=== PATIENT | male | born 1965 | race Caucasian/White ===

== ENCOUNTER 2022-08-27 17:52 | Emergency (ER) | payer SELFPAY ==
--- NOTE | 2022-08-27 18:06 | ERPHSYRPT ---
- History of Present Illness Time Seen by Provider: 08/27/22 18:05 Source: patient Exam Limitations: no limitations Physician History: This is a morbidly obese 56-year-old white male patient who states that he has been depressed for over a year and has lost 102 pounds in over a year and does not tend to eat much. He states in the last 6 months he is lost the majority of his weight and its not necessarily intentional. He states that at times, he vomits up liquid when he drinks it. Patient states that he has been diagnosed in the past with hyperlipidemia, diabetes, gastroesophageal reflux disease, and depression. However, he has not been taking any of this medication. He has an appointment to see Dr. Milian in the latter part of the first week of September 2022. He states that his weakness is getting worse in the last week. Patient denies shortness of breath. He denies pain of any kind. He specifically denies chest pain and denies abdominal pain. He has not had any fevers or diarrhea. When asked, the patient denies being homicidal and he denies being suicidal Timing/Duration: worse, other (Chronic over several months) Severity: mild (To moderate) Associated Symptoms: nausea, vomiting, loss of appetite, weakness, No abdominal pain, No shortness of breath, No chest pain, No fever, No seizure Allergies/Adverse Reactions: No Known Drug Allergies Allergy (Verified 08/27/22 18:01) Hx Influenza Vaccination/Date Given: No Hx Pneumococcal Vaccination/Date Given: No Travel Risk - International Travel Have you traveled outside of the country in past 3 weeks: No - Coronavirus Screening Are you exhibiting any of the following symptoms?: No Close contact with a COVID-19 positive Pt in past 14-21 Days: No - Review of Systems Constitutional: Weakness Eyes: No Symptoms Ears, Nose, & Throat: No Symptoms Respiratory: No Symptoms Cardiac: No Symptoms Abdominal/Gastrointestinal: No Symptoms Genitourinary Symptoms: No Symptoms Musculoskeletal: No Symptoms Skin: No Symptoms Neurological: No Symptoms Psychological: Depression, No Suicidal Ideations, No Homicidal Ideations Endocrine: Other (Weight loss) Hematologic/Lymphatic: No Symptoms Immunological/Allergic: No Symptoms - Past Medical History Pertinent Past Medical History: Yes Cardiac History: High Cholesterol Other Medical History: swelling in legs and feet - Past Surgical History Past Surgical History: No - Social History Smoking Status: Never smoker Drug Use: none - Nursing Vital Signs Nursing Vital Signs: Initial Vital Signs Temperature 98.5 F 08/27/22 18:02 Pulse Rate 96 H 08/27/22 18:02 Respiratory Rate 19 08/27/22 18:02 Blood Pressure 146/96 08/27/22 18:02 O2 Sat by Pulse Oximetry 98 08/27/22 18:02 Pain Scale Pain Intensity 0 - Physical Exam General Appearance: no apparent distress, alert, anxiety, obese Eye Exam: PERRL/EOMI, eyes nml inspection Ears, Nose, Throat Exam: normal ENT inspection, moist mucous membranes Neck Exam: normal inspection, non-tender, supple, full range of motion Respiratory Exam: normal breath sounds, lungs clear, airway intact, No chest tenderness, No respiratory distress Cardiovascular Exam: regular rate/rhythm, normal heart sounds, normal peripheral pulses Gastrointestinal/Abdomen Exam: soft, normal bowel sounds, No tenderness Rectal Exam: not done Back Exam: normal inspection, normal range of motion, No CVA tenderness, No rena tebral tenderness Extremity Exam: normal inspection, normal range of motion, pelvis stable Neurologic Exam: alert, oriented x 3, cooperative, 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, normal mood/affect, nml cerebellar function, nml station & gait, sensation nml Skin Exam: normal color, warm, dry Lymphatic Exam: No adenopathy SpO2 Interpretation: normal O2 Delivery: Room Air - Course Nursing assessment & vital signs reviewed: Yes EKG Interpreted by Me: RATE (86), Sinus Rhythm, NORMAL AXIS, LAFB, NORMAL INTERVALS, Right Bundle Branch Block, NORMAL ST-T, Other (No acute ischemic changes on today's twelve-lead EKG) Ordered Tests: Active Orders 24 hr Category Date Time Status Black Leather Buffer STAT Care 08/27/22 18:52 Active EKG-ER Only STAT Care 08/27/22 18:52 Active IV Insertion STAT Care 08/27/22 18:52 Active CHEST 1 VIEW (PORTABLE) Stat Exams 08/27/22 20:04 Completed CBC W DIFF Stat Lab 08/27/22 18:45 Completed CMP Stat Lab 08/27/22 18:45 Completed CULTURE,URINE Stat Lab 08/27/22 21:24 Received Zapata Screen Stat Lab 08/27/22 18:45 Completed NT PRO BNPII Stat Lab 08/27/22 18:45 Completed T4 (Thyroxine) Stat Lab 08/27/22 18:45 Completed TROPONIN Q4H Lab 08/27/22 18:45 Completed TROPONIN Q4H Lab 08/27/22 23:00 Ordered TROPONIN Q4H Lab 08/28/22 03:00 Ordered TSH [TSH, 3RD Generation] Stat Lab 08/27/22 18:45 Completed UA W/RFX UR CULTURE Stat Lab 08/27/22 21:24 Completed Urine Triage Profile Stat Lab 08/27/22 21:15 Completed Medication Summary Discontinued Medications Generic Name Dose Route Start Last Admin Trade Name Freq PRN Reason Stop Dose Admin Sodium Chloride 1,000 mls @ 999 mls/hr 08/27/22 18:52 08/27/22 20:32 Sodium Chloride 0.9% 1000 Ml IV 08/27/22 19:52 Infused .Q1H1M STA Infusion Sodium Chloride Confirm 08/27/22 19:21 Sodium Chloride 0.9% 1000 Ml Administered 08/27/22 19:22 Dose 1,000 mls @ ud .ROUTE .STK-MED ONE Pantoprazole Sodium 40 mg 08/27/22 20:41 08/27/22 21:06 Pantoprazole 40 Mg Vial IV 08/27/22 20:42 40 mg STAT ONE Administration Pantoprazole Sodium Confirm 08/27/22 21:05 Pantoprazole 40 Mg Vial Administered 08/27/22 21:06 Dose 40 mg IV .STK-MED ONE Potassium Chloride 20 meq 08/27/22 20:05 08/27/22 20:11 Potassium Chloride Tab 10 Meq Tab PO 08/27/22 20:06 20 meq STAT ONE Administration Potassium Chloride Confirm 08/27/22 20:08 Potassium Chloride Tab 10 Meq Tab Administered 08/27/22 20:09 Dose 40 meq PO .STK-MED ONE Potassium Chloride Confirm 08/27/22 20:12 Potassium Chloride Tab 10 Meq Tab Administered 08/27/22 20:13 Dose 20 meq PO .STK-MED ONE Lab/Rad Data: Laboratory Result Diagrams 08/27/22 18:45 08/27/22 18:45 Laboratory Results 08/27/22 08/27/22 08/27/22 Range/Units 21:24 21:15 19:10 WBC (4.0-10.5) x10^3/uL RBC (4.1-5.6) x10^6/uL Hgb (12.5-18.0) g/dL Hct (42-50) % MCV (78-100) fL MCH (26-32) pg MCHC (32-36) g/dL RDW (11.5-14.0) % Plt Count (150-450) x10^3/uL MPV (7.5-11.0) fL Gran % (36.0-66.0) % Immature Gran % (Auto) (0.00-0.4) % Nucleat RBC Rel Count (0.00-0.1) % Eos # (Auto) (0-0.5) x10^3/uL Immature Gran # (Auto) (0.00-0.03) x10^3u/L Absolute Lymphs (auto) (1.0-4.6) x10^3/uL Absolute Monos (auto) (0.0-1.3) x10^3/uL Absolute Nucleated RBC (0.00-0.01) x10^3u/L Lymphocytes % (24.0-44.0) % Monocytes % (0.0-12.0) % Eosinophils % (0.00-5.0) % Basophils % (0.0-0.4) % Absolute Granulocytes (1.4-6.9) x10^3/uL Basophils # (0-0.4) x10^3/uL Sodium (137-145) mmol/L Potassium (3.5-5.1) mmol/L Chloride (98-107) mmol/L Carbon Dioxide (22-30) mmol/L Anion Gap (5-15) MEQ/L BUN (9-20) mg/dL Creatinine (0.66-1.25) mg/dL Estimated GFR ML/MIN Glucose (74-106) mg/dL Calcium (8.4-10.2) mg/dL Total Bilirubin (0.2-1.3) mg/dL AST (17-59) U/L ALT (0-50) U/L Alkaline Phosphatase (38-126) U/L Troponin I (0.000-0.034) ng/mL NT-Pro-B Natriuret Pep (<300) pg/mL Serum Total Protein (6.3-8.2) g/dL Albumin (3.5-5.0) g/dL Thyroxine (T4) (5.53-10.96) ug/dL TSH 3rd Generation (0.47-4.68) mIU/L Urine Color Dark Yellow (Yellow) Urine Appearance Cloudy A (Clear) Urine pH 5.5 (4.6-8.0) Ur Specific [place] 1.020 (1.005-1.030) Urine Protein 30 (Negative) Urine Glucose (UA) Negative (Negative) mg/dL Urine Ketones Trace A (Negative) Urine Blood Negative (Negative) Urine Nitrite Positive A (Negative) Urine Bilirubin Moderate A (Negative) Urine Urobilinogen 2.0 A (0.2) mg/dL Ur Leukocyte Esterase Trace A (Negative) U Hyaline Cast (Auto) 6-10 A (0-2) /LPF Urine Microscopic RBC 0-2 (0-5) /HPF Urine Microscopic WBC 3-5 (0-5) /HPF Ur Epithelial Cells Few (None Seen) /HPF Urine Bacteria None Seen (None Seen) /HPF Urine Culture Reflexed YES (NO) Urine Opiates Level NEGATIVE (NEGATIVE) Ur Methadone NEGATIVE (NEGATIVE) Urine Barbiturates NEGATIVE (NEGATIVE) Ur Phencyclidine (PCP) NEGATIVE (NEGATIVE) Urine Amphetamine NEGATIVE (NEGATIVE) U Benzodiazepine Level NEGATIVE (NEGATIVE) Urine Cocaine NEGATIVE (NEGATIVE) Urine Marijuana (THC) NEGATIVE (NEGATIVE) Monoscreen (Negative) Influenza Type A Ag NEGATIVE (NEGATIVE) Influenza Type B Ag NEGATIVE (NEGATIVE) RSV (PCR) NEGATIVE (NEGATIVE) SARS-CoV-2 (PCR) NEGATIVE (NEGATIVE) 08/27/22 08/27/22 08/27/22 Range/Units 18:45 18:45 18:45 WBC (4.0-10.5) x10^3/uL RBC (4.1-5.6) x10^6/uL Hgb (12.5-18.0) g/dL Hct (42-50) % MCV (78-100) fL MCH (26-32) pg MCHC (32-36) g/dL RDW (11.5-14.0) % Plt Count (150-450) x10^3/uL MPV (7.5-11.0) fL Gran % (36.0-66.0) % Immature Gran % (Auto) (0.00-0.4) % Nucleat RBC Rel Count (0.00-0.1) % Eos # (Auto) (0-0.5) x10^3/uL Immature Gran # (Auto) (0.00-0.03) x10^3u/L Absolute Lymphs (auto) (1.0-4.6) x10^3/uL Absolute Monos (auto) (0.0-1.3) x10^3/uL Absolute Nucleated RBC (0.00-0.01) x10^3u/L Lymphocytes % (24.0-44.0) % Monocytes % (0.0-12.0) % Eosinophils % (0.00-5.0) % Basophils % (0.0-0.4) % Absolute Granulocytes (1.4-6.9) x10^3/uL Basophils # (0-0.4) x10^3/uL Sodium (137-145) mmol/L Potassium (3.5-5.1) mmol/L Chloride (98-107) mmol/L Carbon Dioxide (22-30) mmol/L Anion Gap (5-15) MEQ/L BUN (9-20) mg/dL Creatinine (0.66-1.25) mg/dL Estimated GFR ML/MIN Glucose (74-106) mg/dL Calcium (8.4-10.2) mg/dL Total Bilirubin (0.2-1.3) mg/dL AST (17-59) U/L ALT (0-50) U/L Alkaline Phosphatase (38-126) U/L Troponin I (0.000-0.034) ng/mL NT-Pro-B Natriuret Pep 461 (<300) pg/mL Serum Total Protein (6.3-8.2) g/dL Albumin (3.5-5.0) g/dL Thyroxine (T4) 11.1 H (5.53-10.96) ug/dL TSH 3rd Generation 1.490 (0.47-4.68) mIU/L Urine Color (Yellow) Urine Appearance (Clear) Urine pH (4.6-8.0) Ur Specific [place] (1.005-1.030) Urine Protein (Negative) Urine Glucose (UA) (Negative) mg/dL Urine Ketones (Negative) Urine Blood (Negative) Urine Nitrite (Negative) Urine Bilirubin (Negative) Urine Urobilinogen (0.2) mg/dL Ur Leukocyte Esterase (Negative) U Hyaline Cast (Auto) (0-2) /LPF Urine Microscopic RBC (0-5) /HPF Urine Microscopic WBC (0-5) /HPF Ur Epithelial Cells (None Seen) /HPF Urine Bacteria (None Seen) /HPF Urine Culture Reflexed (NO) Urine Opiates Level (NEGATIVE) Ur Methadone (NEGATIVE) Urine Barbiturates (NEGATIVE) Ur Phencyclidine (PCP) (NEGATIVE) Urine Amphetamine (NEGATIVE) U Benzodiazepine Level (NEGATIVE) Urine Cocaine (NEGATIVE) Urine Marijuana (THC) (NEGATIVE) Monoscreen (Negative) Influenza Type A Ag (NEGATIVE) Influenza Type B Ag (NEGATIVE) RSV (PCR) (NEGATIVE) SARS-CoV-2 (PCR) (NEGATIVE) 08/27/22 08/27/22 08/27/22 Range/Units 18:45 18:45 18:45 WBC (4.0-10.5) x10^3/uL RBC (4.1-5.6) x10^6/uL Hgb (12.5-18.0) g/dL Hct (42-50) % MCV (78-100) fL MCH (26-32) pg MCHC (32-36) g/dL RDW (11.5-14.0) % Plt Count (150-450) x10^3/uL MPV (7.5-11.0) fL Gran % (36.0-66.0) % Immature Gran % (Auto) (0.00-0.4) % Nucleat RBC Rel Count (0.00-0.1) % Eos # (Auto) (0-0.5) x10^3/uL Immature Gran # (Auto) (0.00-0.03) x10^3u/L Absolute Lymphs (auto) (1.0-4.6) x10^3/uL Absolute Monos (auto) (0.0-1.3) x10^3/uL Absolute Nucleated RBC (0.00-0.01) x10^3u/L Lymphocytes % (24.0-44.0) % Monocytes % (0.0-12.0) % Eosinophils % (0.00-5.0) % Basophils % (0.0-0.4) % Absolute Granulocytes (1.4-6.9) x10^3/uL Basophils # (0-0.4) x10^3/uL Sodium 140 (137-145) mmol/L Potassium 3.2 L (3.5-5.1) mmol/L Chloride 101 (98-107) mmol/L Carbon Dioxide 27 (22-30) mmol/L Anion Gap 15.0 (5-15) MEQ/L BUN 10 (9-20) mg/dL Creatinine 0.67 (0.66-1.25) mg/dL Estimated GFR > 60.0 ML/MIN Glucose 106 (74-106) mg/dL Calcium 9.3 (8.4-10.2) mg/dL Total Bilirubin 0.90 (0.2-1.3) mg/dL AST 44 (17-59) U/L ALT 29 (0-50) U/L Alkaline Phosphatase 92 (38-126) U/L Troponin I 0.022 (0.000-0.034) ng/mL NT-Pro-B Natriuret Pep (<300) pg/mL Serum Total Protein 7.3 (6.3-8.2) g/dL Albumin 3.5 (3.5-5.0) g/dL Thyroxine (T4) (5.53-10.96) ug/dL TSH 3rd Generation (0.47-4.68) mIU/L Urine Color (Yellow) Urine Appearance (Clear) Urine pH (4.6-8.0) Ur Specific [place] (1.005-1.030) Urine Protein (Negative) Urine Glucose (UA) (Negative) mg/dL Urine Ketones (Negative) Urine Blood (Negative) Urine Nitrite (Negative) Urine Bilirubin (Negative) Urine Urobilinogen (0.2) mg/dL Ur Leukocyte Esterase (Negative) U Hyaline Cast (Auto) (0-2) /LPF Urine Microscopic RBC (0-5) /HPF Urine Microscopic WBC (0-5) /HPF Ur Epithelial Cells (None Seen) /HPF Urine Bacteria (None Seen) /HPF Urine Culture Reflexed (NO) Urine Opiates Level (NEGATIVE) Ur Methadone (NEGATIVE) Urine Barbiturates (NEGATIVE) Ur Phencyclidine (PCP) (NEGATIVE) Urine Amphetamine (NEGATIVE) U Benzodiazepine Level (NEGATIVE) Urine Cocaine (NEGATIVE) Urine Marijuana (THC) (NEGATIVE) Monoscreen NEGATIVE (Negative) Influenza Type A Ag (NEGATIVE) Influenza Type B Ag (NEGATIVE) RSV (PCR) (NEGATIVE) SARS-CoV-2 (PCR) (NEGATIVE) 08/27/22 Range/Units 18:45 WBC 17.4 H (4.0-10.5) x10^3/uL RBC 4.80 (4.1-5.6) x10^6/uL Hgb 14.4 (12.5-18.0) g/dL Hct 44.4 (42-50) % MCV 92.5 (78-100) fL MCH 30.0 (26-32) pg MCHC 32.4 (32-36) g/dL RDW 13.4 (11.5-14.0) % Plt Count 270 (150-450) x10^3/uL MPV 10.3 (7.5-11.0) fL Gran % 85.6 H (36.0-66.0) % Immature Gran % (Auto) 0.5 H (0.00-0.4) % Nucleat RBC Rel Count 0.0 (0.00-0.1) % Eos # (Auto) 0.22 (0-0.5) x10^3/uL Immature Gran # (Auto) 0.09 H (0.00-0.03) x10^3u/L Absolute Lymphs (auto) 1.17 (1.0-4.6) x10^3/uL Absolute Monos (auto) 0.98 (0.0-1.3) x10^3/uL Absolute Nucleated RBC 0.00 (0.00-0.01) x10^3u/L Lymphocytes % 6.7 L (24.0-44.0) % Monocytes % 5.6 (0.0-12.0) % Eosinophils % 1.3 (0.00-5.0) % Basophils % 0.3 (0.0-0.4) % Absolute Granulocytes 14.89 H (1.4-6.9) x10^3/uL Basophils # 0.06 (0-0.4) x10^3/uL Sodium (137-145) mmol/L Potassium (3.5-5.1) mmol/L Chloride (98-107) mmol/L Carbon Dioxide (22-30) mmol/L Anion Gap (5-15) MEQ/L BUN (9-20) mg/dL Creatinine (0.66-1.25) mg/dL Estimated GFR ML/MIN Glucose (74-106) mg/dL Calcium (8.4-10.2) mg/dL Total Bilirubin (0.2-1.3) mg/dL AST (17-59) U/L ALT (0-50) U/L Alkaline Phosphatase (38-126) U/L Troponin I (0.000-0.034) ng/mL NT-Pro-B Natriuret Pep (<300) pg/mL Serum Total Protein (6.3-8.2) g/dL Albumin (3.5-5.0) g/dL Thyroxine (T4) (5.53-10.96) ug/dL TSH 3rd Generation (0.47-4.68) mIU/L Urine Color (Yellow) Urine Appearance (Clear) Urine pH (4.6-8.0) Ur Specific [place] (1.005-1.030) Urine Protein (Negative) Urine Glucose (UA) (Negative) mg/dL Urine Ketones (Negative) Urine Blood (Negative) Urine Nitrite (Negative) Urine Bilirubin (Negative) Urine Urobilinogen (0.2) mg/dL Ur Leukocyte Esterase (Negative) U Hyaline Cast (Auto) (0-2) /LPF Urine Microscopic RBC (0-5) /HPF Urine Microscopic WBC (0-5) /HPF Ur Epithelial Cells (None Seen) /HPF Urine Bacteria (None Seen) /HPF Urine Culture Reflexed (NO) Urine Opiates Level (NEGATIVE) Ur Methadone (NEGATIVE) Urine Barbiturates (NEGATIVE) Ur Phencyclidine (PCP) (NEGATIVE) Urine Amphetamine (NEGATIVE) U Benzodiazepine Level (NEGATIVE) Urine Cocaine (NEGATIVE) Urine Marijuana (THC) (NEGATIVE) Monoscreen (Negative) Influenza Type A Ag (NEGATIVE) Influenza Type B Ag (NEGATIVE) RSV (PCR) (NEGATIVE) SARS-CoV-2 (PCR) (NEGATIVE) - Progress Progress: improved Progress Note: 08/27/22 21:53 This patient's medical issue is of moderate complexity. The level of complexity in the work-up performed was determined by reviewing the patient's past medical history, medication list, drug allergy list, history of present illness and findings on physical examination. The work-up includes a chest x-ray, twelve- lead EKG, troponin level, CBC, CMP, BNP, urinalysis, urine triage, thyroid function test. The chest x-ray was evaluated and interpreted by me. There is no evidence of any acute cardiopulmonary processes. Patient does have a leukocytosis of unknown origin. We provided him with intravenous fluids, intravenous Protonix. Patient again states he has no chest pain. He has no shortness of breath. He has no abdominal pain. We also performed COVID-19 test, mononucleosis test, influenza A and influenza B test and tested for RSV. These results were negative. We will provide the patient with intravenous antibiotics because he does have a leukocytosis of significance with a left shift. Patient has appointment to see his new primary care physician in [facility] 2 weeks time. We will have him drink plenty of fluids and prescribe him Protonix. 08/27/22 22:04 Patient has a urinary tract infection. We will provide him with a dose of Rocephin intravenously tonight and send a prescription for Levaquin to his pharmacy. Counseled pt/family regarding: lab results, diagnosis, need for follow-up Medical Desision Making - Independent Historian Additional History obtained from: Spouse, Child - Discussion of managment Reviewed:: Test results, Need for additional workup Agreed on:: Treatment plan, need for follow-up - Diagnostic Testing Diagnostic test were ordered, analyzed, and reviewed by me: Yes Radiological Interpretation: Interpreted by me - Risk of complications The pt has a mod risk of morbidity or mortality based on: Need for prescription drug management - Departure Departure Disposition: Home Clinical Impression: UTI (urinary tract infection) Condition: Stable Critical Care Time: No Referrals: NICHOLAS LEIVA [Primary Care Provider] - Follow up/PCP as directed Additional Instructions: Drink plenty of clear liquids. Advance your diet as tolerated. Avoid fatty greasy spicy foods. Take your antibiotics and Protonix as prescribed. Keep your appointment with Dr. Milian. Prescriptions: Levofloxacin [Levaquin 500 MG Tablet] 500 mg PO DAILY #7 tablet Pantoprazole 20 mg [Protonix 20MG Tablet] 20 mg PO DAILY #21 tab
[2022-08-27] MEDS ORDERED: Sodium Chloride 0.9% 1000 ML 1,000 ML IV STA (18:52)
[2022-08-27 19:05] LABS: Absolute Neutrophil Ct (ANC) 14.89 x10^3/uL (1.4-6.9); BASOPHIL % 0.3 % (0.0-0.4); Basophil (Absolute #) 0.06 x10^3/uL (0-0.4); Eosinophil % 1.3 % (0.00-5.0); Eosinophil (Absolute #) 0.22 x10^3/uL (0-0.5); Hematocrit 44.4 % (42-50); Hemoglobin 14.4 g/dL (12.5-18.0); IMMATURE GRAN # 0.09 x10^3u/L (0.00-0.03); IMMATURE GRAN % 0.5 % (0.00-0.4); Lymphocyte (Absolute #) 1.17 x10^3/uL (1.0-4.6); Lymphocytes % 6.7 % (24.0-44.0); Mean Cell Volume 92.5 fL (78-100); Mean Corpuscular Hgb Concent. 32.4 g/dL (32-36); Mean Platelet Volume 10.3 fL (7.5-11.0); Monocyte (Absolute #) 0.98 x10^3/uL (0.0-1.3); Monocytes % 5.6 % (0.0-12.0); Neutrophil % 85.6 % (36.0-66.0); Platelet Count 270 x10^3/uL (150-450); Red Cell Distribution Width 13.4 % (11.5-14.0); White Blood Count 17.4 x10^3/uL (4.0-10.5)
[2022-08-27 19:06] LABS: ALBUMIN 3.5 g/dL (3.5-5.0); ALKALINE PHOSPHATASE 92 U/L (38-126); BLOOD UREA NITROGEN 10 mg/dL (9-20); CHLORIDE 101 mmol/L (98-107); Calcium 9.3 mg/dL (8.4-10.2); Carbon Dioxide 27 mmol/L (22-30); Creatinine 1 0.67 mg/dL (0.66-1.25); EST GLOMERULAR FILTRATION RATE > 60.0 ML/MIN; Glucose 106 mg/dL (74-106); Potassium 3.2 mmol/L (3.5-5.1); SGOT/AST 44 U/L (17-59); SGPT/ALT 29 U/L (0-50); SODIUM 140 mmol/L (137-145); Total Protein 7.3 g/dL (6.3-8.2)
[2022-08-27] MEDS ORDERED: Sodium Chloride 0.9% 1000 ML 1,000 ML ONE (19:21)
[2022-08-27 19:52] LABS: INFLUENZA A NEGATIVE (NEGATIVE); INFLUENZA B NEGATIVE (NEGATIVE); RESPIRATORY SYNCTIAL VIRUS NEGATIVE (NEGATIVE); SARS-CoV-2 Xpert Express NEGATIVE (NEGATIVE)
[2022-08-27] MEDS ORDERED: Klor Con PO ONE ×3 (20:05→20:12)
[2022-08-27] MEDS ORDERED: PROTONIX 40 MG IV IV ONE ×2 (20:41→21:05)
--- NOTE | 2022-08-27 21:07 | XRAY ---
Indication: Weakness. Leukocytosis. Comparison: None Portable chest demonstrates normal heart and lungs. Bony thorax intact with mild degenerative changes.
[2022-08-27 21:36] LABS: Amphetamine,Urine NEGATIVE (NEGATIVE); Barbiturate,Urine NEGATIVE (NEGATIVE); Benzodiazepine,Urine NEGATIVE (NEGATIVE); Cocaine,Urine NEGATIVE (NEGATIVE); Methadone,Urine NEGATIVE (NEGATIVE); Opiate,Urine NEGATIVE (NEGATIVE); PCP,Urine NEGATIVE (NEGATIVE); THC,Urine NEGATIVE (NEGATIVE)
[2022-08-27 21:57] LABS: Appearance Cloudy (Clear); Bacteria None Seen /HPF (None Seen); Bilirubin Moderate (Negative); Blood Negative (Negative); Epithelial Cells Few /HPF (None Seen); Glucose, Urine Negative (Negative); Ketones Trace (Negative); Leukocyte Esterase Trace (Negative); Nitrite Positive (Negative); Ph 5.5 (4.6-8.0); Protein,Urine Dip 30 (Negative); RBC 0-2 /HPF (0-5)
[2022-08-27 21:59] LABS: ADD URINE CULTURE? YES (NO)
[2022-08-27 22:05] VITALS: BP 113/81; PULSE 84; O2SAT 98
[2022-08-27] MEDS ORDERED: ROCEPHIN 1 Gm-D5w 50 ml Bag** 1 G/50 ML IVPB IV STA (22:07)
[2022-08-27] MEDS ORDERED: ROCEPHIN 1 Gm-D5w 50 ml Bag** 1 G/50 ML IVPB IV ONE (22:09)
== END 2022-08-27 22:30 | disposition home or self-care (01) ==
LOC: ED 17:52
DX: N39.0 Urinary tract infection, site not specified (principal); R53.1 Weakness; E78.5 Hyperlipidemia, unspecified; E11.9 Type 2 diabetes mellitus without complications; Z20.828 Contact with and (suspected) exposure to other viral communicable diseases
CPT/HCPCS: 0241U; 36000; 36415; 71045; 80053; 80307; 81001; 83880; 84436; 84443; 84484; 85025; 86308; 87086; 93005; 93041; 96360; 96374; 99284; 96365; J0696; A9270-GY

== ENCOUNTER 2022-09-17 06:08 | Day surgery (SDC) | payer SELFPAY ==
[2022-09-17] MEDS ORDERED: Lactated Ringers 1,000 ML IV SCH (06:30)
[2022-09-17] MEDS ORDERED: Xylocaine-Mpf 2% 5 Ml Vial ONE (06:57)
[2022-09-17] MEDS ORDERED: Versed 2 MG/2 ML Injection ONE (06:57)
[2022-09-17] MEDS ORDERED: DIPRIVAN 200 MG/20 ML IV ONE (06:57)
[2022-09-17 08:12] VITALS: BP 123/85; PULSE 79; O2SAT 99
--- NOTE | 2022-09-17 08:26 | OP ---
SURGERY DATE/TIME: 09/17/2022 0720 PREOPERATIVE DIAGNOSIS: Vomiting. POSTOPERATIVE DIAGNOSIS: Lower esophageal mass and stricture. PROCEDURE: Esophagogastroduodenoscopy with cold forceps biopsy to the lower esophageal mass. SURGEON: Dr. Paul. ANESTHESIA: Medications were given by the anesthesia department. BRIEF HISTORY: The patient is a year old 56-year-old white male patient presenting now for endoscopic evaluation. He reports he has been having trouble with vomiting. He has trouble with getting breads down. He was felt the need to have endoscopic evaluation. The patient was appraised of the risks of the procedure including the risk of perforation, phlebitis, untoward reaction to medication, bleeding and missed lesions. The patient verbalized his understanding and desired to have the procedure performed. DESCRIPTION OF PROCEDURE: The patient was given the medications by the anesthesia department. He had continuous pulse oximetry, ECG monitoring, intermittent blood pressure monitoring during the examination. He was placed in the left lateral decubitus position. A bite block was placed. The flexible Olympus gastroscope was used to intubate the oropharynx. The scope was introduced in the esophagus where in the lower segment appeared to be a mass that was quite firm. We were unable to pass beyond the mass due to a stricture that was present. We biopsied the area and removed the scope. The patient is taken back to the recovery room in good condition.
--- NOTE | 2022-09-17 09:11 | XRAY ---
Indication: Abdomen pain. Multiple contiguous axial images obtained through the abdomen and pelvis without contrast. Comparison: None Limited exam due to patient body habitus. Entire left abdomen/descending colon not completely included in [id number]. Lung bases demonstrates dependent atelectasis, left greater than right. Heart not enlarged. Small hiatal hernia. Noncontrasted stomach and bowel loops appear nonobstructed with normal appendix. There are multiple mesenteric and periaortic prominent lymph nodes with moderate stranding favoring adenitis. Primary/metastatic malignancy not completely excluded. Largest is right periaortic inferior to the main renal artery measuring at least 3.3 x 2.5 cm. Mild diffuse fatty liver. There is 6.1 x 4.4 cm fatty right adrenal adenoma. Left kidney demonstrates a few cysts, largest 3 cm parapelvic. No free fluid/air. Remaining liver, gallbladder, pancreas, spleen, adrenal glands, kidneys, ureters, and bladder are unremarkable for noncontrast exam. Aorta is normal in course and caliber with minimal left main renal artery punctate calcification. Osseous structures intact with mild degenerative changes throughout the thoracolumbar spine and both hips. Impression: 1. Limited CT exam due to patient body habitus. 2. Multiple mesenteric and periaortic prominent lymph nodes with stranding favoring adenitis. Malignancy not completely excluded. 3. Chronic findings including small hiatal hernia, fatty liver, right adrenal adenoma, left renal cysts, and chronic bony findings.
--- NOTE | 2022-09-17 09:29 | XRAY ---
Indication: Abdomen pain and vomiting. Two-dimensional gallbladder sonogram performed. Comparison: None Gallbladder normally distended without gallstones, wall thickening, or pericholecystic fluid. Common bile duct measures 4.9 mm. No intrahepatic biliary distention. Diffuse fatty hepatomegaly measuring 20 cm. No focal solid/cystic hepatic mass or free fluid. Remaining visualized pancreas and right kidney are sonographically unremarkable. Right kidney measures 12.2 cm in length. Impression: Fatty hepatomegaly. Remaining gallbladder sonogram is negative.
== END 2022-09-17 08:15 | disposition home or self-care (01) ==
LOC: SDC 06:08
PROVIDERS: ATTEND Family Medicine
DX: K22.9 Disease of esophagus, unspecified (principal); R11.10 Vomiting, unspecified; K22.2 Esophageal obstruction
CPT/HCPCS: 74176; 76705; J2250; J2704

== ENCOUNTER 2022-10-06 14:07 | Observation (INO) | payer MEDICAID ==
[2022-10-06] MEDS ORDERED: MORPHINE SULFATE 2 MG INJ IV PRN (14:28)
[2022-10-06] MEDS ORDERED: Zofran 4 MG/2 ML VIAL IV PRN (14:29)
[2022-10-06] MEDS ORDERED: Sodium Chloride 0.9% 10 ML FLUSH Syringe IV PRN (14:30)
[2022-10-06 15:01] LABS: Hematocrit 31.7 % (42-50); Hemoglobin 10.2 g/dL (12.5-18.0); Mean Cell Volume 92.4 fL (78-100); Mean Corpuscular Hemoglobin 29.7 pg (26-32); Mean Corpuscular Hgb Concent. 32.2 g/dL (32-36); Mean Platelet Volume 9.2 fL (7.5-11.0); Platelet Count 287 x10^3/uL (150-450); Red Blood Count 3.43 x10^6/uL (4.1-5.6); Red Cell Distribution Width 15.9 % (11.5-14.0); White Blood Count 14.5 x10^3/uL (4.0-10.5)
[2022-10-06 15:08] LABS: ANION GAP 12.9 MEQ/L (5-15); BLOOD UREA NITROGEN 11 mg/dL (9-20); CHLORIDE 102 mmol/L (98-107); Calcium 8.4 mg/dL (8.4-10.2); Carbon Dioxide 25 mmol/L (22-30); Creatinine 1 0.57 mg/dL (0.66-1.25); EST GLOMERULAR FILTRATION RATE > 60.0 ML/MIN; Glucose 84 mg/dL (74-106); SODIUM 136 mmol/L (137-145)
[2022-10-06 15:21] LABS: Potassium 2.8 mmol/L (3.5-5.1)
[2022-10-06] MEDS ORDERED: Sodium Chloride 0.9% 500 ML 500 ML IV SCH (16:00)
[2022-10-06] MEDS: POTASSIUM CHLORIDE 20 mEq IN WATER 100ML 100 ML IV SCH ×2 (16:24→18:17)
[2022-10-06] MEDS: K-LYTE PO SCH ×3 (16:24→20:27)
--- NOTE | 2022-10-06 18:04 | XRAY ---
Indication: Preop exam. Comparison: August 27, 2022 Portable apical lordotic chest less inflated and remains clear. Heart not enlarged. Bony thorax intact again with mild degenerative changes. Impression: Continued nonacute chest.
[2022-10-06] MEDS: Sodium Chloride 0.9% 10 ML FLUSH Syringe IV SCH (20:27)
[2022-10-07 04:57] LABS: Hematocrit 29.2 % (42-50); Hemoglobin 9.3 g/dL (12.5-18.0); Mean Corpuscular Hgb Concent. 31.8 g/dL (32-36); Mean Platelet Volume 9.4 fL (7.5-11.0); Platelet Count 265 x10^3/uL (150-450); Red Blood Count 3.21 x10^6/uL (4.1-5.6); Red Cell Distribution Width 15.9 % (11.5-14.0); White Blood Count 12.9 x10^3/uL (4.0-10.5)
[2022-10-07 05:12] LABS: ANION GAP 10.8 MEQ/L (5-15); BLOOD UREA NITROGEN 11 mg/dL (9-20); CHLORIDE 103 mmol/L (98-107); Calcium 8.1 mg/dL (8.4-10.2); Carbon Dioxide 24 mmol/L (22-30); Creatinine 1 0.51 mg/dL (0.66-1.25); EST GLOMERULAR FILTRATION RATE > 60.0 ML/MIN; Glucose 90 mg/dL (74-106); Potassium 3.3 mmol/L (3.5-5.1); SODIUM 135 mmol/L (137-145)
[2022-10-07] MEDS: Sodium Chloride 0.9% 10 ML FLUSH Syringe IV SCH ×3 (09:02→21:57)
[2022-10-07] MEDS ORDERED: KEFZOL 1 GM** 3 G in Sodium Chloride 0.9% 50 ML 50 ML IV SCH (09:30)
[2022-10-07] MEDS: Klor Con PO SCH ×3 (09:32→21:49)
[2022-10-07] MEDS: Protonix 40MG Tablet PO SCH ×2 (09:32→21:49)
[2022-10-07] MEDS: Sodium Chloride 0.9% 1000 ML 1,000 ML IV SCH ×2 (09:32→22:12)
[2022-10-07] MEDS: Carafate 1 GM PO SCH ×2 (09:37→15:47)
[2022-10-07] MEDS: FEOSOL 325 MG PO SCH (09:37)
[2022-10-07] MEDS ORDERED: NON-FORMULARY ITEM (Omeprazole [Omeprazole] 40 MG Capsule.Dr) PO SCH (10:00)
[2022-10-07] MEDS ORDERED: Marcaine 0.5%/Epinephrine 10 ML ONE (11:07)
[2022-10-07] MEDS ORDERED: Naropin 0.5% 30 ML VIAL ONE (11:07)
[2022-10-07] MEDS ORDERED: Xylocaine-Mpf 2% 5 Ml Vial ONE (11:07)
[2022-10-07] MEDS ORDERED: DIPRIVAN 200 MG/20 ML IV ONE ×4 (11:10→13:03)
[2022-10-07] MEDS ORDERED: Versed 2 MG/2 ML Injection ONE (11:10)
[2022-10-07] MEDS ORDERED: SUBLIMAZE 100 MCG/2 ML ONE ×2 (11:10→12:18)
[2022-10-07] MEDS ORDERED: KEFZOL 1 GM ONE (11:52)
[2022-10-07] MEDS ORDERED: Sodium Chloride 0.9% 1000 ML 1,000 ML ONE (13:50)
[2022-10-07 14:59] LABS: Hematocrit 31.2 % (42-50); Hemoglobin 9.9 g/dL (12.5-18.0)
[2022-10-07] MEDS: HYDROCODONE-ACETAMIN 10-325 MG PO PRN (15:02)
[2022-10-07] MEDS: Levofloxacin 500 MG Tablet PO SCH (15:47)
[2022-10-07] MEDS: ELIQUIS 2.5 MG TABLET PO SCH (21:49)
[2022-10-08] MEDS: Sodium Chloride 0.9% 1000 ML 1,000 ML IV SCH (06:07)
[2022-10-08 07:34] LABS: Hematocrit 25.9 % (42-50); Hemoglobin 8.3 g/dL (12.5-18.0)
--- NOTE | 2022-10-08 07:34 | XRAY ---
Indication: Right ankler ORIF. Intraoperative fluoroscopy was provided for 3 minutes 23 seconds. 9 digital spot images submitted for interpretation ultimately demonstrates lateral malleolus fixation plate/screws and 2 medial malleolus fixation screws fixating bimalleolar fractures in good apposition/alignment. Previous talar subluxation also improved and near anatomic. Correlate with intraoperative findings/report.
[2022-10-08] MEDS: Carafate 1 GM PO SCH (08:22)
[2022-10-08] MEDS: Sodium Chloride 0.9% 10 ML FLUSH Syringe IV SCH (08:25)
[2022-10-08] MEDS: ELIQUIS 2.5 MG TABLET PO SCH (09:46)
[2022-10-08] MEDS: Protonix 40MG Tablet PO SCH (09:47)
[2022-10-08] MEDS: FEOSOL 325 MG PO SCH (09:47)
[2022-10-08] MEDS: Klor Con PO SCH (09:47)
[2022-10-08] MEDS: Levofloxacin 500 MG Tablet PO SCH (09:47)
--- NOTE | 2022-10-08 10:39 | OP ---
SURGERY DATE: 10/07/2022 SURGERY TIME: 1141 PREOPERATIVE DIAGNOSIS: 1. BIMALLEOLAR FRACTURE OF RIGHT ANKLE. 2. SYNDESMOTIC DISRUPTION. 3. RIGHT ANKLE PAIN. POSTOPERATIVE DIAGNOSIS: 1. BIMALLEOLAR FRACTURE OF RIGHT ANKLE. 2. SYNDESMOTIC DISRUPTION. 3. RIGHT ANKLE PAIN. PROCEDURE: 1. Open reduction internal fixation of bimalleolar fracture with syndesmotic reduction. SURGEON: David Bonner D.P.M. ELECTRIC WHEELCHAIR REPAIRER: None. ANESTHESIA: MAC with a preoperative popliteal and femoral block. See anesthesia report for details. HEMOSTASIS: A pressure dressing. ESTIMATED BLOOD LOSS: Approximately 300 cc. MATERIALS: 3-0 Nylon, 4-0 Monocryl, 2-0 Vicryl, 2-0 Nylon, 3 suture guards, a Nirav distal fibula 8 hole anatomic plate right with one 3.5 X 56 mm and one 3.5 X 50 mm for syndesmotic screws as well as two 4.0 X 70 cannulated partially threaded screws for the medial malleolus. INJECTIBLES: See anesthesia report for details. INDICATIONS: Jake is a very pleasant 56 year-old male who we met yesterday after having suffered a fall in his bathroom. The patient indicated that his left knee buckled and just caused him to fall onto his right ankle resulting in significant pain. Patient was transported to [facility] where a bimalleolar fracture was diagnosed and the patient was supposed to follow-up outpatient. Patient did present to his primary care for follow-up of a stage IV esophageal cancer and was referred to my service the next day for assessment of the ankle fracture. On examination of the x-rays, the patient had a significantly displaced bimalleolar fracture. In the patient's current situation, he does have esophageal cancer that is recently diagnosed and needs to have his port placed as well as begin chemotherapy and radiation therapy per the surgical oncologist. At this time, discussion with the patient in regards to the facture itself and the patient's current life circumstances, the patient and the agree that they would like to proceed with surgical intervention if it allows him to continue having independence to some degree during this difficult time for him. The patient understands all risks, complications, and benefits of surgical intervention at this time including, but not limited to, infection; hematoma; seroma; possibility of delayed wound healing, non-wound healing; possibility of surgical wound dehiscence; possible need for surgery at a later date; possibility of non-bone healing; possibility of failure of surgical hardware and possible need for removal of hardware at a later date. No guarantees were provided as to the outcome of surgical intervention. Plenty of time was allowed for the patient and his to ask questions which were answered to the patient and his 's apparent satisfaction. It is with that we decided to proceed. OPERATIVE SUMMARY: The patient was brought to the PACU and provided a popliteal and femoral block. See anesthesia report for details. At this time, the patient was then brought in to the operating room and placed on the operating room table in the supine position. MAC was then administered until the patient was sedated. The right lower extremity was prepped and draped in the typical sterile fashion and lowered onto the surgical field. At this time, under fluoroscopic guidance, surgical incisions were planned by utilizing a freer and a sting marker. At this time, once adequate positioning was determined, a linear incision was made utilizing a 10 blade at the posterolateral aspect of the fibula making an incision full thickness down to the level of the bone. Immediately, the fracture was identified. A dental pick was then utilized to clean out the hematoma and copious amounts of sterile saline were utilized to flush the surgical site. A lobster claw reduction clamp was then utilized to clamp the fracture site. This was checked under multiple views and deemed to be in adequate position with shunt and blind and dime sign lining up at the distal aspect of the fibula and within the ankle mortise. That also being said, the talus had reduced into its normal position. A distal cortical screw was then introduced unicortical and then a series of locking screws were then utilized to lock the distal aspect of the plate down. This was used as a distraction device and at this time a cortical screw was introduced just proximal to the fracture site into the proximal aspect of the fibula. Three screws were introduced at this time to secure the construct which was once again checked under fluoroscopic guidance. At this time, a 15 blade was then utilized to make an incision at the medial aspect of the anterior aspect of the medial malleolus. The fracture was quickly identified. Once again, dental pick was utilized to clean out the hematoma and reduce the periosteum out of the fracture site. Copious amounts of sterile saline were utilized to flush this site and the fracture was reduced utilizing a pointed reduction forcep. Two K-wires were then introduced into the anterior colliculus gaining good purchase of the medial malleolus into the proximal fracture fragment. At this time, two 4.0 X 70 cannulated partially threaded screws were introduced into the fracture site. The first screw did have a washer to add some compression to the fracture site due to patient's bone quality. Following this, the syndesmosis was stressed and deemed to be incompetent. Two syndesmotic screws were introduced measuring 56 and 50 mm in length, both solid fully threaded 3.5 screws. Following this, final shots were taken on fluoroscopy and deemed to be in an adequate position. Copious amounts of sterile saline were utilized to flush the surgical sites. Two suture guards with 2-0 Nylon were utilized on the lateral aspect of the leg as well as one to the medial aspect of the leg to reduce tension to the skin. At this time, 4-0 Monocryl was utilized to coapt the subcutaneous skin edges as well as 2-0 Vicryl in areas of heavier tension. At this time, 3-0 Nylon was then utilized to coapt the subcutaneous tissue in a horizontal mattress type fashion with everted skin edges. Patient then was placed in a dressing consisting of Betadine, Adaptic, 4 X 4, Kerlix, and a well-padded posterior splint with sugar tongue with the foot orthogonal relative to the longitudinal axis of the leg. The patient was then reversed from anesthesia and returned to the PACU with vital signs stable and vascular status intact. The patient handled the anesthesia as well as the procedure without significant complication. Postoperative orders as indicated in the patient's discharge chart.
[2022-10-08 12:19] VITALS: BP 119/69; PULSE 92; O2SAT 97
[2022-10-08] MEDS: HYDROCODONE-ACETAMIN 10-325 MG PO PRN (12:40)
--- NOTE | 2022-10-08 17:25 | XRAY ---
3 minutes 23 seconds of fluoroscopy was used in surgery for a right ankle ORIF.
== END 2022-10-08 13:30 | disposition home or self-care (01) ==
LOC: MED SURG 14:07
PROVIDERS: ADMIT Family Medicine; ATTEND Family Medicine
DX: S82.841A Displaced bimalleolar fracture of right lower leg, initial encounter for closed fracture (principal); S93.491A Sprain of other ligament of right ankle, initial encounter; M25.571 Pain in right ankle and joints of right foot; C15.9 Malignant neoplasm of esophagus, unspecified
CPT/HCPCS: 27814; 27829; 36415; 71045; 73600; 76000; 76937; 80048; 83735; 83880; 84132; 85014; 85018; 85027; 93005; 93268; C1713; G0378; G0379; J0690; J2250; J2405; J2704; J2795; J3010; J3480; A9270-GY